=== PATIENT | female | born 1990 | race Caucasian/White ===

== ENCOUNTER 2017-10-20 18:50 | Emergency (ER) | payer SELFPAY ==
[~2017-10-20] VITALS: Ht 165.1 cm; Wt 96.2 kg
[2017-10-20 19:41] VITALS: BP 122/71
[2017-10-20 19:45] LABS: microscopic required? YES; urine erythrocyte TRACE (NEGATIVE)
== END 2017-10-20 19:41 | disposition home or self-care (01) ==
LOC: ED 18:50
PROVIDERS: Emergency Medicine
DX: O26.892 Other specified pregnancy related conditions, second trimester (principal); R10.30 Lower abdominal pain, unspecified; Z3A.20 20 weeks gestation of pregnancy